=== PATIENT | female | born 1935 | race Caucasian/White ===

== ENCOUNTER 2018-01-06 10:14 | Outpatient (CLI) | payer OTHER ==
[2014-05-06 23:46] VITALS: BMI 28.2
== END 2018-01-06 10:15 | disposition home or self-care (01) ==
LOC: RHC-LAB 10:14
PROVIDERS: ATTEND Emergency Medicine
DX: Z00.00 Encounter for general adult medical examination without abnormal findings (principal); E66.9 Obesity, unspecified; R53.82 Chronic fatigue, unspecified
CPT/HCPCS: 36415; 80053; 80061; 84443; 85025

== ENCOUNTER 2018-03-09 10:53 | Outpatient (CLI) ==
[2014-05-06 23:46] VITALS: BMI 28.2
== END 2018-03-09 10:54 | disposition home or self-care (01) ==
LOC: LAB 10:53
PROVIDERS: ATTEND Internal Medicine Hematology & Oncology
DX: C50.911 Malignant neoplasm of unspecified site of right female breast (principal)
CPT/HCPCS: 36415; 80053; 82378; 85025; 86300